=== PATIENT | male | born 1980 | race Caucasian/White ===

== ENCOUNTER 2016-07-30 14:24 | Emergency (ER) | payer OTHER ==
[2016-07-30 14:40] VITALS: BP 144/90
--- NOTE | 2016-07-30 17:18 | UC ---
Complaint Male HPI - HPI Summary HPI Summary: COLD SYMPTOMS THREE WEEKS AGO, LAST FOUR DAYS DEVELOPED PAIN URGENCY FREQUENCY WITH URINATION WELL SMALL BLISTERS ON EXTERNAL GENITALIA. NO DISCHARGE. NO CHANGE IN SEXUAL PARTNERS. 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 PARTNER PRESENTS NO SYMPTOMS. NO FEVER. - History of Current Complaint Chief Complaint: UCGU Stated Complaint: POSSIBLE UTI Time Seen by Provider: 07/30/16 15:53 Hx Obtained From: Patient Onset/Duration: Gradual Onset, Lasting Days, Still Present Timing: Lasting Days Severity Initially: Mild Severity Currently: Moderate Location: Penis Character: Burning Aggravating Factor(s): Voiding Associated Signs And Symptoms: Positive: Dysuria. Negative: Fever, Hematuria, Constipation, Rectal Pain, Appetite, Nausea, Penile Swelling, Penile Discharge - Risk Factors Testicular Torsion: Negative - Allergies/Home Medications Allergies/Adverse Reactions: Allergies Allergy/AdvReac Type Severity Reaction Status Date / Time No Known Allergies Allergy Verified 07/30/16 14:40 PMH/Surg Hx/FS Hx/Imm Hx Previously Healthy: Yes - Surgical History Surgical History: Yes Surgery Procedure, Year, and Place: wisdom teeth - Family History Known Family History: Negative: Renal Disease - Social History Occupation: Employed Full-time Lives: With Family Alcohol Use: Occasionally Substance Use Type: None Smoking Status (MU): Never Smoked Tobacco Review of Systems Constitutional: Negative Skin: Rash Eyes: Negative ENT: Negative Respiratory: Negative Cardiovascular: Negative Gastrointestinal: Negative Genitourinary: Dysuria, Frequency, Urgency Motor: Negative Neurovascular: Negative Musculoskeletal: Negative Neurological: Negative Psychological: Negative All Other Systems Reviewed And Are Negative: Yes Physical Exam Triage Information Reviewed: Yes Appearance: Well-Appearing, No Pain Distress, Well-Nourished Vital Signs: Initial Vital Signs Temp 99.0 F 07/30/16 14:35 Pulse 78 07/30/16 14:35 Resp 20 07/30/16 14:35 BP 144/90 07/30/16 14:35 Pulse Ox 99 07/30/16 14:35 Vital Signs Reviewed: Yes Eye Exam: Normal ENT Exam: Normal ENT: Positive: Normal ENT inspection, Hearing grossly normal, TMs normal Dental Exam: Normal Neck exam: Normal Respiratory Exam: Normal Respiratory: Positive: Chest non-tender, Lungs clear, Normal breath sounds, No respiratory distress, No accessory muscle use Cardiovascular Exam: Normal Cardiovascular: Positive: RRR, No Murmur Abdomen Description: Positive: Nontender, No Organomegaly, Other: - SMALL VESICULAR LESION ON DENS OF PENIS NEAR URETHRAL MEATUS. Negative: CVA Tenderness (R), CVA Tenderness (L) Musculoskeletal Exam: Normal Neurological Exam: Normal Psychological Exam: Normal Skin: Positive: rashes - SMALL VESICULAR LESIONS AT DENS OF PENIS NEAR URETHRAL MEATUS Complaint Male Course/Dx - Differential Dx/Diagnosis Differential Diagnosis/HQI/PQRI: Prostatitis, Urinary Tract Infection Provider Diagnoses: GENITAL HSV ; DYSURIA Discharge - Discharge Plan Condition: Stable Disposition: HOME Prescriptions: ValACYclovir (*) [Valtrex 500 mg (*)] 500 mg PO BID #10 tab Patient Education Materials: Genital Herpes Simplex (ED) Referrals: [facility]IAN REFERRAL [Outside] No Primary Care Phys,NOPCP [Primary Care Provider] -
== END 2016-07-30 17:15 | disposition home or self-care (01) ==
LOC: UCEAST 14:24
DX: A60.00 Herpesviral infection of urogenital system, unspecified (principal); R30.0 Dysuria
CPT/HCPCS: 81003; 99212; G0463